=== PATIENT | female | born 1980 | race Hispanic/Latino ===

== ENCOUNTER 2019-07-14 16:20 | Emergency (ER) | payer OTHER ==
[2019-07-14] MEDS ORDERED: Metoclopramide HCl 10 MG/2 ML VIAL ONE (16:36)
[2019-07-14] MEDS ORDERED: Sodium Chloride 0.9% 1,000 ML ONE (16:36)
[2019-07-14 16:50] LABS: Bilirubin Negative (Negative); Blood, Urine Trace (Negative); Clarity Clear (Clear); Glucose, Urine (Dipstick) Negative (Negative); Leukocyte Negative (Negative); Nitrite Negative (Negative); Protein, Urine (Dipstick) Negative (Neg-Trace); Urobilinogen 0.2 mg/dL (Less than 2)
[2019-07-14 16:53] LABS: Pregnancy Test - Urine (BHCG) Negative (Negative); Pregu Control Background? CLEAR/WHITE (CLR/WHITE); Pregu Control Bar Appear? YES (CONTROL BAR)
[2019-07-14 17:02] LABS: RBC/HPF 0-3 HPF (0-3); Squamous Epithelial 0-3 HPF (0-3)
--- NOTE | 2019-07-14 17:45 | CT ---
CT HEAD WITHOUT CONTRAST: Indications: Headache. FINDINGS: Ventricles have normal size and position. No evidence of mass, edema, or hemorrhage. Artifact obscure s the brain in the posterior fossa on this unenhanced study. IMPRESSION: No acute abnormality identified. POS: [facility]
== END 2019-07-14 17:50 | disposition home or self-care (01) ==
LOC: NAV ERS 16:20
DX: R51 Headache (principal); K51.90 Ulcerative colitis, unspecified, without complications
CPT/HCPCS: 70450; 81003; 81015; 81025; 96365; J2765; J7050

== ENCOUNTER 2022-11-12 16:38 | Emergency (ER) | payer BC ==
[2022-11-12] MEDS ORDERED: Ondansetron PF 4 MG/2 ML Vial ONE (17:01)
[2022-11-12] MEDS ORDERED: Clindamycin/D5W 900 mg/50 ml Premix Bag ONE (17:12)
[2022-11-12] MEDS ORDERED: Morphine 4 MG/ML VIAL ONE (17:12)
[2022-11-12 17:26] LABS: Band 11 % (5-11); Hematocrit 42.8 % (36.0-47.0); Hemoglobin 13.8 g/dL (12.0-16.0); Lymphocytes 4 % (21-51); MDiff Complete? YES; Mean Corpuscular HGB CONC 32.3 g/dL (32.0-36.0); Mean Corpuscular Hemoglobin 28.8 pg (27.0-31.0); Mean Corpuscular Volume 89.1 fl (78.0-98.0); Mean Platelet Volume 7.4 fL (7.4-10.4); Monocytes 2 % (0-10); Neutrophil 83 % (42-75); Platelet Adequacy Comment Appears Adequate; Platelet Count 297 10x3/uL (130-400); Red Blood Cell (RBC) Count 4.81 mill/uL (4.20-5.40); White Blood Cell (WBC) Count 28.5 10x3/uL (4.8-10.8)
[2022-11-12 17:31] LABS: ALT (SGPT) 52 U/L (8-55); AST (SGOT) 28 U/L (5-34); Albumin 4.1 g/dL (3.5-5.0); Alkaline Phosphatase 92 U/L (40-110); Anion Gap 20 mmol/L (10-20); BUN (Urea Nitrogen) 11 mg/dL (7.0-18.7); Bilirubin, Total 0.6 mg/dL (0.2-1.2); Calc. Creatinine Clearance 0 mL/min (70-130); Carbon Dioxide 17 mmol/L (22-29); Chloride 99 mmol/L (98-107); Estimated GFR 93; Globulin 3.7 g/dL (2.4-3.5); Glucose 115 mg/dL (70-105); Potassium 3.6 mmol/L (3.5-5.1); Protein, Total 7.8 g/dL (6.0-8.3); Sodium 132 mmol/L (136-145)
[2022-11-12] MEDS ORDERED: Vancomycin 1 GM VIAL ONE (18:20)
[2022-11-12] MEDS ORDERED: Sodium Chloride 0.9% 500 ML ONE (18:20)
[2022-11-12] MEDS ORDERED: Ketorolac Tromethamine 30 MG/ML VIAL ONE (18:43)
[2022-11-12] MEDS ORDERED: diphenhydrAMINE 50 MG/ML VIAL ONE ×2 (18:49→19:20)
[2022-11-12] MEDS ORDERED: Sodium Chloride 0.9% 0 ML ONE (19:20)
[2022-11-12 19:27] LABS: SARS-CoV-2 NAA Rapid Test Not Detected (NotDetected)
== END 2022-11-12 20:39 | disposition short-term general hospital (02) ==
LOC: NAV ERS 16:38
DX: L03.115 Cellulitis of right lower limb (principal); A41.9 Sepsis, unspecified organism; Z20.822 Contact with and (suspected) exposure to COVID-19
CPT/HCPCS: 71045; 80053; 83605; 85025; 85379; 87040; 87077; 87149; 87186; 93005; 96365; 96374; 96375; J1200; J1885; J2270; J2405; J3370; J3490; J7030; J7050; U0002

== ENCOUNTER 2025-03-15 15:03 | Emergency (ER) | payer BC ==
[2025-03-15] MEDS ORDERED: predniSONE 20 MG TAB ONE (15:51)
== END 2025-03-15 16:57 | disposition home or self-care (01) ==
LOC: NAV ERS 15:03
DX: T78.40XA Allergy, unspecified, initial encounter (principal); J45.909 Unspecified asthma, uncomplicated; Z79.51 Long term (current) use of inhaled steroids
CPT/HCPCS: 87081; 87430; 99283; J7512